=== PATIENT | female | born 1960 | race Caucasian/White ===

== ENCOUNTER 2017-09-04 15:14 | Observation (INO) | payer BC ==
[2017-09-04] MEDS ORDERED: SODIUM CHLORIDE 0.9% 1,000 ML IV STA (15:52)
[2017-09-04] MEDS ORDERED: NITROGLYCERIN SL TABS 0.4 MG TAB SUBLINGUAL STA (15:52)
[2017-09-04] MEDS ORDERED: ASPIRIN 81 MG PO STA (15:52)
[2017-09-04] MEDS ORDERED: IPRATROPIUM-ALBUTEROL 3 ML NEB INHALATION STA (15:53)
--- NOTE | 2017-09-04 15:56 | ED ---
Recheck HPI - General Chief Complaint: Recheck/Abnormal Lab/Rx Stated Complaint: Abn EKG Time Seen by Provider: 09/04/17 15:35 Source: patient, RN notes reviewed Mode of arrival: ambulatory Limitations: no limitations - History of Present Illness Initial Comments: This is a 57-year-old female with a benign past medical history is strong family history of heart disease stroke who is a smoker who presents from a doctor's office with complaints of midsternal chest pain dull pulsating in nature 9/10 severity midsternal nonradiating associated with shortness of breath. It started this morning about 5:30 AM and persists. She denies any other complaints cough fevers chills nausea vomiting sweats or other symptoms no other modifying factors. - Related Data Home Medications Medication Instructions Recorded Confirmed No Known Home Medications 05/04/14 09/04/17 Allergies Allergy/AdvReac Type Severity Reaction Status Date / Time No Known Allergies Allergy Verified 09/04/17 16:34 Review of Systems ROS Statement: Those systems with pertinent positive or pertinent negative responses have been documented in the HPI. ROS Other: All systems not noted in ROS Statement are negative. Past Medical History Past Medical History: No Reported History History of Any Multi-Drug Resistant Organisms: None Reported Past Surgical History: Tonsillectomy, Tubal Ligation Past Anesthesia/Blood Transfusion Reactions: No Reported Reaction Past Psychological History: No Psychological Hx Reported Smoking Status: Current every day smoker Past Alcohol Use History: Daily Past Drug Use History: None Reported General Exam - General Exam Comments Initial Comments: This is a well-developed well-nourished awake alert oriented 3 female Limitations: no limitations General appearance: alert, anxious Head exam: Present: atraumatic, normocephalic, normal inspection Eye exam: Present: normal appearance, PERRL, EOMI. Absent: scleral icterus, conjunctival injection, periorbital swelling ENT exam: Present: normal exam, mucous membranes moist Neck exam: Present: normal inspection. Absent: tenderness, meningismus, lymphadenopathy Respiratory exam: Present: decreased breath sounds. Absent: respiratory distress, wheezes, rales, rhonchi, stridor Cardiovascular Exam: Present: regular rate, normal rhythm, normal heart sounds. Absent: systolic murmur, diastolic murmur, rubs, gallop, clicks GI/Abdominal exam: Present: soft, normal bowel sounds. Absent: distended, tenderness, guarding, rebound, rigid Extremities exam: Present: normal inspection, full ROM, normal capillary refill. Absent: tenderness, pedal edema, joint swelling, calf tenderness Back exam: Present: normal inspection Neurological exam: Present: alert, oriented X3, CN II-XII intact Psychiatric exam: Present: normal affect, normal mood Skin exam: Present: warm, dry, intact, normal color. Absent: rash Course Vital Signs 09/04/17 09/04/17 09/04/17 15:30 16:10 16:45 Temperature 98.1 F Pulse Rate 91 78 76 Pulse Rate [ 72 [employer] Customer Experience [employer]ist ] Respiratory 18 18 16 Rate Blood Pressure 123/83 133/85 O2 Sat by Pulse 99 99 Oximetry 09/04/17 09/04/17 09/04/17 16:54 17:15 18:18 Temperature Pulse Rate 76 59 L 72 Pulse Rate [ [employer] Customer Experience Specialist ] Respiratory 16 18 16 Rate Blood Pressure 105/62 102/63 O2 Sat by Pulse 96 98 Oximetry 09/04/17 19:16 Temperature Pulse Rate 77 Pulse Rate [ [employer] Customer Experience Specialist ] Respiratory 16 Rate Blood Pressure 99/56 O2 Sat by Pulse 100 Oximetry - Reevaluation(s) Reevaluation #1: 09/04/17 15:55 I did discuss smoking cessation and the risks and benefits thereof with the patient the total conversation lasting 3.1 minutes. Medical Decision Making - Medical Decision Making I did reevaluate patient several occasions she still has chest pain though she has improved thus far the Toradol seemed to help though the chest pain is atypical she will be staying in tonight for a cardiac evaluation. - Lab Data Result diagrams: 09/04/17 16:10 09/04/17 16:10 Lab Results 09/04/17 09/04/17 09/04/17 Range/Units 16:10 16:10 16:10 WBC 9.7 (3.8-10.6) k/uL RBC 4.42 (3.80-5.40) m/uL Hgb 13.6 (11.4-16.0) gm/dL Hct 42.0 (34.0-46.0) % MCV 95.0 (80.0-100.0) fL MCH 30.8 (25.0-35.0) pg MCHC 32.4 (31.0-37.0) g/dL RDW 13.6 (11.5-15.5) % Plt Count 277 (150-450) k/uL Neutrophils % 80 % Lymphocytes % 9 % Monocytes % 8 % Eosinophils % 1 % Basophils % 0 % Neutrophils # 7.7 (1.3-7.7) k/uL Lymphocytes # 0.9 L (1.0-4.8) k/uL Monocytes # 0.8 (0-1.0) k/uL Eosinophils # 0.1 (0-0.7) k/uL Basophils # 0.0 (0-0.2) k/uL PT (9.0-12.0) sec INR (<1.2) APTT (22.0-30.0) sec D-Dimer (<0.60) mg/L FEU Sodium 140 (137-145) mmol/L Potassium 4.3 (3.5-5.1) mmol/L Chloride 105 (98-107) mmol/L Carbon Dioxide 26 (22-30) mmol/L Anion Gap 9 mmol/L BUN 15 (7-17) mg/dL Creatinine 0.58 (0.52-1.04) mg/dL Est GFR (CKD-EPI)AfAm >90 (>60 ml/min/1.73 sqM) Est GFR (CKD-EPI)NonAf >90 (>60 ml/min/1.73 sqM) Glucose 102 H (74-99) mg/dL Calcium 9.5 (8.4-10.2) mg/dL Magnesium 1.9 (1.6-2.3) mg/dL Total Bilirubin 0.7 (0.2-1.3) mg/dL AST 17 (14-36) U/L ALT 25 (9-52) U/L Alkaline Phosphatase 60 (38-126) U/L Total Creatine Kinase 44 (30-135) U/L CK-MB (CK-2) 0.8 (0.0-2.4) ng/mL CK-MB (CK-2) Rel Index 1.8 Troponin I <0.012 (0.000-0.034) ng/mL NT-Pro-B Natriuret Pep pg/mL Total Protein 6.6 (6.3-8.2) g/dL Albumin 4.0 (3.5-5.0) g/dL Amylase 55 (30-110) U/L Lipase 50 (23-300) U/L 09/04/17 09/04/17 Range/Units 16:10 16:10 WBC (3.8-10.6) k/uL RBC (3.80-5.40) m/uL Hgb (11.4-16.0) gm/dL Hct (34.0-46.0) % MCV (80.0-100.0) fL MCH (25.0-35.0) pg MCHC (31.0-37.0) g/dL RDW (11.5-15.5) % Plt Count (150-450) k/uL Neutrophils % % Lymphocytes % % Monocytes % % Eosinophils % % Basophils % % Neutrophils # (1.3-7.7) k/uL Lymphocytes # (1.0-4.8) k/uL Monocytes # (0-1.0) k/uL Eosinophils # (0-0.7) k/uL Basophils # (0-0.2) k/uL PT 10.0 (9.0-12.0) sec INR 1.0 (<1.2) APTT 24.0 (22.0-30.0) sec D-Dimer 0.36 (<0.60) mg/L FEU Sodium (137-145) mmol/L Potassium (3.5-5.1) mmol/L Chloride (98-107) mmol/L Carbon Dioxide (22-30) mmol/L Anion Gap mmol/L BUN (7-17) mg/dL Creatinine (0.52-1.04) mg/dL Est GFR (CKD-EPI)AfAm (>60 ml/min/1.73 sqM) Est GFR (CKD-EPI)NonAf (>60 ml/min/1.73 sqM) Glucose (74-99) mg/dL Calcium (8.4-10.2) mg/dL Magnesium (1.6-2.3) mg/dL Total Bilirubin (0.2-1.3) mg/dL AST (14-36) U/L ALT (9-52) U/L Alkaline Phosphatase (38-126) U/L Total Creatine Kinase (30-135) U/L CK-MB (CK-2) (0.0-2.4) ng/mL CK-MB (CK-2) Rel Index Troponin I (0.000-0.034) ng/mL NT-Pro-B Natriuret Pep 267 pg/mL Total Protein (6.3-8.2) g/dL Albumin (3.5-5.0) g/dL Amylase (30-110) U/L Lipase (23-300) U/L - EKG Data -: EKG Interpreted by Ri EKG shows normal: sinus rhythm (Sinus rhythm rate 73. Ago 122 QRS duration 72 QT since QTC of 404/445 PACs noted this. The office EKG which does show some evidence of poor R-wave progression.) - Radiology Data Radiology results: report reviewed (I did review the imaging and report no acute findings. Is evidence of calcifications and a cardiac vessels.), image reviewed Critical Care Time Critical Care Time: Yes Critical Care Time: 33 minutes of critical care time which includes initial history physical labs x- rays several reevaluation patient responsive therapy discuss with the admitting physician admission orders and documentation of the above Disposition Clinical Impression: Chest pain, Angina pectoris Disposition: ADMITTED IP TO THIS HOSP Condition: Stable Referrals: Christopher Gomez MD [Primary Care Provider] - 1-2 days
[2017-09-04 16:28] LABS: Basophils % (A) 0 %; Eosinophils # (A) 0.1 k/uL (0-0.7); Eosinophils % (A) 1 %; HGB 13.6 gm/dL (11.4-16.0); Lymphocytes # (A) 0.9 k/uL (1.0-4.8); Lymphocytes % (A) 9 %; MCH 30.8 pg (25.0-35.0); MCHC 32.4 g/dL (31.0-37.0); Mean Platelet Volume 7.7; Monocytes # (A) 0.8 k/uL (0-1.0); Monocytes % (A) 8 %; Neutrophils # (A) 7.7 k/uL (1.3-7.7); Neutrophils % (A) 80 %; Platelet Count 277 k/uL (150-450); RBC 4.42 m/uL (3.80-5.40); RDW 13.6 % (11.5-15.5); WBC 9.7 k/uL (3.8-10.6)
[2017-09-04] MEDS ORDERED: KETOROLAC 30 MG/ML 1 ML VIAL IVP STA (16:31)
--- NOTE | 2017-09-04 16:32 | XR ---
EXAMINATION TYPE: XR chest 2V DATE OF EXAM: 09/04/2017 COMPARISON: NONE HISTORY: Shortness of breath and chest pain TECHNIQUE: Frontal and lateral views of the chest are obtained. FINDINGS: There is pulmonary hyperinflation and biapical lucency suggestive of underlying COPD. There is no focal air space opacity, pleural effusion, or pneumothorax seen. The cardiac silhouette size is within normal limits. The osseous structures are intact. Mild multilevel degenerative changes of the thoracic spine are noted. IMPRESSION: No acute cardiopulmonary process. Radiographic sequela of COPD.
[2017-09-04 16:36] LABS: ALT 25 U/L (9-52); AST 17 U/L (14-36); Alkaline Phosphatase 60 U/L (38-126); Amylase 55 U/L (30-110); Anion Gap 9 mmol/L; Blood Urea Nitrogen 15 mg/dL (7-17); Calcium 9.5 mg/dL (8.4-10.2); Carbon Dioxide 26 mmol/L (22-30); Chloride 105 mmol/L (98-107); Glucose 102 mg/dL (74-99); Lipase 50 U/L (23-300); Magnesium 1.9 mg/dL (1.6-2.3); Potassium 4.3 mmol/L (3.5-5.1); Sodium 140 mmol/L (137-145); Total Bilirubin 0.7 mg/dL (0.2-1.3); Total Protein 6.6 g/dL (6.3-8.2)
[2017-09-04 16:48] LABS: Creatine Kinase 44 U/L (30-135)
[2017-09-04 16:58] LABS: D-Dimer 0.36 mg/L FEU (<0.60)
[2017-09-04 16:59] LABS: Creatine Kinase MB 0.8 ng/mL (0.0-2.4); Troponin I <0.012 ng/mL (0.000-0.034)
[2017-09-04] MEDS ORDERED: methylPREDNISolone SOD SUCCI 125 MG/2 ML VIAL IV STA (17:32)
--- NOTE | 2017-09-04 19:22 | CT ---
EXAMINATION TYPE: CT angio chest with contrast and with 3-D reconstruction renderings DATE OF EXAM: 09/04/2017 6:13 PM COMPARISON: None HISTORY: pain CT DLP: 131.6 mGycm Automated exposure control for dose reduction was used. CONTRAST: CTA scan of the thorax is performed with IV Contrast, patient injected with 100 mL of Isovue 370, pul monary embolism protocol. 3-D reconstructions. FINDINGS: LUNGS: The lungs show markedly advanced emphysematous changes bilaterally. They are grossly clear, th ere is no concerning parenchymal mass or nodule identified. There is no pleural effusion or pneumot horax seen. The tracheobronchial tree is patent. MEDIASTINUM: There is satisfactory enhancement of the pulmonary artery and its branches, there is no CT evidence for pulmonary embolism. There are no greater than 1 cm hilar or mediastinal lymph nodes. Cardiac size is top normal. Left coronary calcifications are noted. Pericardial examination is nega tive. OTHER: No additional significant abnormality is seen. IMPRESSION: 1. NEGATIVE FOR PULMONARY EMBOLISM. 2. CORONARY CALCIFICATIONS. 3. PROMINENT EMPHYSEMATOUS CHANGES NOTED.
[2017-09-04] MEDS ORDERED: NITROGLYCERIN SL TABS 0.4 MG TAB SUBLINGUAL PRN (20:36)
[2017-09-04] MEDS ORDERED: HEPARIN SODIUM,PORCINE 5,000 UNIT/ML 1 ML VIAL IV ONE (20:36)
[2017-09-04] MEDS ORDERED: NICOTINE 21MG/24HR PATCH TRANSDERM STA (20:40)
[2017-09-04] MEDS: HEPARIN SOD,PORK IN 0.45% NACL 25,000 UNIT in 0.45% NACL 1 500ML.BAG IV SCH (20:56)
[2017-09-04] MEDS: SODIUM CHLORIDE 0.9% 1,000 ML IV SCH (21:00)
[2017-09-04 23:01] LABS: Creatine Kinase 35 U/L (30-135)
[2017-09-04] MEDS ORDERED: HYDROcodone/APAP 5-325MG 1 EACH TAB PO PRN (23:10)
[2017-09-04] MEDS ORDERED: IPRATROPIUM-ALBUTEROL 3 ML NEB INHALATION PRN (23:11)
[2017-09-04] MEDS ORDERED: NALOXONE 0.4 MG/ML 1 ML VIAL IV PRN (23:11)
[2017-09-04 23:15] LABS: Creatine Kinase MB 0.5 ng/mL (0.0-2.4); Troponin I <0.012 ng/mL (0.000-0.034)
--- NOTE | 2017-09-04 23:20 | P.HPIM ---
History of Present Illness H&P Date: 09/04/17 Chief Complaint: chest pain 57-year-old female with no significant past medical history. Patient presented hospital due to severe chest pain. She reports that she woke up at 5:30 in the morning with midsternal chest pain radiating to the left side of chest and the back associated with some trouble breathing. Denies any nausea or vomiting denies any headaches or dizziness denies any constipation. Patient reports that the pain was 9 out of 10 in severity more follow-up dullness and heaviness on her chest she has never experienced anything similar to this. She denies any past medical history of coronary artery disease. She denies any history of trauma to the chest or any heavy physical exertion recently. She denies any recent travel or any history of active cancer. Patient took aspirin in the morning which she takes sporadically as he was recommended by her physician in the past. She went to her doctor's office recommended for her to [facility] for further evaluation. In the emergency department her cardiac enzymes were negative, CT angios the chest was negative for PE but did suggest consultations of the coronary arteries. Patient is admitted under observation for further cardiac workup Currently she feels comfortable and denying any ongoing chest Review of Systems Pertinent positives as noted in HPI. All other systems were reviewed and are negative Past Medical History Past Medical History: No Reported History History of Any Multi-Drug Resistant Organisms: None Reported Past Surgical History: Tonsillectomy, Tubal Ligation Past Anesthesia/Blood Transfusion Reactions: No Reported Reaction Smoking Status: Current every day smoker - Past Family History Mother Family Medical History: CVA/TIA Father Family Medical History: Pulmonary Embolus Brother(s) Family Medical History: Myocardial Infarction (ID) Additional Family Medical History / Comment(s): 2nd brother had valve replaced and a single bypass Daughter(s) Additional Family Medical History / Comment(s): over wieght/lap band surgery Son(s) Additional Family Medical History / Comment(s): diverticulitis Medications and Allergies Home Medications Medication Instructions Recorded Confirmed Type No Known Home Medications 05/04/14 09/04/17 History Allergies Allergy/AdvReac Type Severity Reaction Status Date / Time No Known Allergies Allergy Verified 09/04/17 22:17 Physical Exam Vitals: Vital Signs Temp Pulse Pulse Resp BP Pulse Ox 09/04/17 20:43 98.1 F 70 16 101/69 97 09/04/17 19:16 77 16 99/56 100 09/04/17 18:18 72 16 102/63 98 09/04/17 17:15 59 L 18 105/62 96 09/04/17 16:54 76 16 09/04/17 16:45 76 16 09/04/17 16:10 78 72 18 133/85 99 09/04/17 15:30 98.1 F 91 18 123/83 99 Intake and Output 09/04/17 09/04/17 09/04/17 06:59 14:59 22:59 Other: Weight 65.317 kg Constitutional: No acute distress, conversant, pleasant Eyes: Anicteric sclerae, moist conjunctiva, no lid-lag Pupils equal round reactive to light ENMT: NC/AT Oropharynx clear, no erythema, or exudates Neck: Supple, FROM, no masses, or JVD No carotid bruits No thyromegaly Lungs: Clear to auscultation Clear to percussion Normal respiratory effort, no accessory muscle use Cardiovascular: Heart regular in rate and rhythm, No murmurs, gallops, or rubs No peripheral edema Abdominal: Soft Nontender, no guarding, rebound or rigidity Abdomen moving with respiration Normoactive bowel sounds No hepatomegaly, No splenomegaly No palpable mass No abdominal wall hernia noted Skin: Normal temperature, tone, texture, turgor No induration No subcutaneous nodules No rash, lesions No ulcers Extremities: No digital cyanosis No clubbing Pedal pulses intact and symmetrical Radial pulses intact and symmetrical No calf tenderness Psychiatric: Alert and oriented to person, place and time Appropriate affect fair judgment Neuro Muscles Strength 5/5 in all 4 extremities Sensation to light touch grossly present throughout Cranial nerves II-XII grossly intact No focal sensory deficits Lymphatics: no palpable cervical or supraclavicular , or inguinal lymph nodes Results CBC & Chem 7: 09/04/17 16:10 09/04/17 16:10 Labs: Abnormal Lab Results - Last 24 Hours (Table) 09/04/17 09/04/17 Range/Units 16:10 16:10 Lymphocytes # 0.9 L (1.0-4.8) k/uL Glucose 102 H (74-99) mg/dL Assessment and Plan Assessment: 57-year-old female with known significant past medical history. Patient is a smoker presented to the hospital with chest pain, patient is admitted under observation with anticipated length of stay of less than 48 hours to rule out acute coronary syndrome. Cardiac enzymes will be monitored along with cardiac monitoring and cardiology consultative for further eval. Patient was started on heparin drip and nitro sublingual as needed Plan: Atypical chest pain rule out ACS Family history of stroke and coronary artery disease Patient active smoker Heparin drip per ACS protocol Nitro when necessary CT angiogram chest was negative for acute coronary syndrome which showed Conditions of the coronary arteries Cardiology consult Pain control Aspirin Check lipid profile Check TSH Tobacco smoking Patient counseled to quit smoking Nicotine replacement therapy offered DVT prophylaxis on heparin drip per ACS Surrogate decision-maker: Yoseph Mathew patient ex- CODE STATUS: Full code Discussed with: Patient, ER, RN Anticipated discharge: <[address]: Home A total of 55 minutes was spent on the care of this complex patient more than 50 % of the time was spent in counseling and care coordination.
[2017-09-05] MEDS: NITROGLYCERIN OINT 1 INCH/GM PACKET TOPICAL SCH ×4 (02:05→23:38)
[2017-09-05 04:32] LABS: Basophils % (A) 0 %; Eosinophils % (A) 0 %; HCT 42.6 % (34.0-46.0); HGB 13.4 gm/dL (11.4-16.0); Lymphocytes # (A) 0.5 k/uL (1.0-4.8); Lymphocytes % (A) 7 %; MCH 30.5 pg (25.0-35.0); MCHC 31.4 g/dL (31.0-37.0); MCV 97.3 fL (80.0-100.0); Mean Platelet Volume 7.5; Monocytes # (A) 0.1 k/uL (0-1.0); Monocytes % (A) 1 %; Neutrophils # (A) 5.6 k/uL (1.3-7.7); Neutrophils % (A) 90 %; Platelet Count 259 k/uL (150-450); RBC 4.38 m/uL (3.80-5.40); RDW 13.5 % (11.5-15.5); WBC 6.2 k/uL (3.8-10.6)
[2017-09-05 04:42] LABS: ALT 25 U/L (9-52); AST 14 U/L (14-36); Albumin 3.6 g/dL (3.5-5.0); Alkaline Phosphatase 54 U/L (38-126); Anion Gap 9 mmol/L; Blood Urea Nitrogen 15 mg/dL (7-17); Calcium 9.2 mg/dL (8.4-10.2); Carbon Dioxide 22 mmol/L (22-30); Chloride 106 mmol/L (98-107); Cholesterol 159 mg/dL (<200); Glucose 155 mg/dL (74-99); HDL Cholesterol 72 mg/dL (40-60); LDL Cholesterol,Calculated 80 mg/dL (0-99); Potassium 4.4 mmol/L (3.5-5.1); Sodium 137 mmol/L (137-145); Total Bilirubin 0.5 mg/dL (0.2-1.3); Triglycerides 37 mg/dL (<150)
[2017-09-05] MEDS: HEPARIN SODIUM,PORCINE 5,000 UNIT/ML 1 ML VIAL IV PRN ×2 (04:51→16:35)
[2017-09-05 05:02] LABS: Creatine Kinase 34 U/L (30-135)
[2017-09-05 05:15] LABS: Creatine Kinase MB 0.6 ng/mL (0.0-2.4); Troponin I <0.012 ng/mL (0.000-0.034)
[2017-09-05] MEDS ORDERED: ASPIRIN 325 MG TAB PO SCH (09:00)
[2017-09-05] MEDS ORDERED: ATORVASTATIN 80 MG TAB PO STA (09:12)
[2017-09-05] MEDS ORDERED: SODIUM CHLORIDE 0.9% 1,000 ML in EMPTY BAG 1 BAG IV ONE (09:12)
[2017-09-05] MEDS ORDERED: ALPRAZolam 0.25 MG TAB PO PRN (09:12)
[2017-09-05] MEDS ORDERED: ALPRAZolam 0.5 MG TAB PO PRN (09:12)
[2017-09-05] MEDS: SODIUM CHLORIDE 0.9% 1,000 ML IV SCH (09:28)
--- NOTE | 2017-09-05 12:11 | ECHOF ---
Referral Reason:cp MEASUREMENTS -------- HEIGHT: 167.6 cm WEIGHT: 65.3 kg BP: 99/63 RVIDd: 2.9 cm (< 3.3) IVSd: 0.9 cm (0.6 - 1.1) LVIDd: 4.2 cm (3.9 - 5.3) LVPWd: 1.0 cm (0.6 - 1.1) IVSs: 1.0 cm LVIDs: 2.9 cm LVPWs: 1.4 cm LA Diam: 2.7 cm (2.7 - 3.8) LAESV Index (A-L): 25.05 ml/m Ao Diam: 3.3 cm (2.0 - 3.7) AV Cusp: 2.0 cm (1.5 - 2.6) MV EXCURSION: 18.829 mm (> 18.000) MV EF SLOPE: 67 mm/s (70 - 150) EPSS: 1.1 cm MV E Nahid: 0.72 m/s MV DecT: 289 ms MV A Nahid: 0.57 m/s MV E/A Ratio: 1.26 AV maxP.52 mmHg AV meanP.93 mmHg AR PHT: 603 ms RAP: 5.00 mmHg RVSP: 22.68 mmHg FINDINGS -------- Sinus rhythm. This was a technically good study. The left ventricular size is normal. Left ventricular wall thickness is normal. Overall left vent ricular systolic function is normal with, an EF between 60 - 65 %. The right ventricle is normal in size. Normal LA size by volume 22+/-6 ml/m2. The right atrium is normal in size. The aortic valve is bicuspid. There is mild to moderate aortic valve sclerosis. There is mild aor tic regurgitation. There is mild aortic stenosis present. Peak/mean gradient across the Aortic Va lve is 25.52mmHg / 13.93mmHg. The mitral valve leaflets are mildly thickened. There is trace to mild mitral regurgitation. Mild tricuspid regurgitation present. Right ventricular systolic pressure is normal at < 35 mmHg. There is no pulmonic regurgitation present. The aortic root size is normal. Normal inferior vena cava with normal inspiratory collapse consistent with estimated right atrial pre ssure of 5 mmHg. The inferior vena cava is mildly dilated. There is no pericardial effusion. CONCLUSIONS -------- 1. Sinus rhythm. 2. This was a technically good study. 3. The left ventricular size is normal. 4. Left ventricular wall thickness is normal. 5. Overall left ventricular systolic function is normal with, an EF between 60 - 65 %. 6. The right ventricle is normal in size. 7. Normal LA size by volume 22+/-6 ml/m2. 8. The right atrium is normal in size. 9. The aortic valve is bicuspid. 10. There is mild to moderate aortic valve sclerosis. 11. There is mild aortic stenosis present. 12. Peak/mean gradient across the Aortic Valve is 25.52mmHg / 13.93mmHg. 13. The mitral valve leaflets are mildly thickened. 14. There is trace to mild mitral regurgitation. 15. Mild tricuspid regurgitation present. 16. Right ventricular systolic pressure is normal at < 35 mmHg. 17. There is no pulmonic regurgitation present. 18. The aortic root size is normal. 19. Normal inferior vena cava with normal inspiratory collapse consistent with estimated right atrial pressure of 5 mmHg. 20. The inferior vena cava is mildly dilated. 21. There is no pericardial effusion. [employer] APPLICATION DEV SPECIALIST: Yolanda Hobbs RDCS
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
[2017-09-05] MEDS ORDERED: ALBUTEROL NEBULIZED 2.5 MG/3 ML INHALATION PRN (12:52)
--- NOTE | 2017-09-05 12:52 | P.PN ---
Subjective Progress Note Date: 09/05/17 Principal diagnosis: Unstable angina Patient is doing well today. She denies any chest pain at the time when I saw her. No acute events overnight. Objective - Vital Signs Vital signs: Vital Signs Temp 98.5 F 09/05/17 12:00 Pulse 75 09/05/17 12:00 Resp 16 09/05/17 12:00 BP 99/63 09/05/17 12:00 Pulse Ox 94 L 09/05/17 12:00 Intake & Output 09/04/17 09/05/17 09/05/17 18:59 06:59 18:59 Intake Total 501.94 Balance 501.94 Weight 65.317 kg Intake: IV 380 Heparin Sod,Pork in 0.45% 60 NaCl 25,000 unit In 0.45 % NaCl 1 500ml.bag @ 12 UNITS/KG/HR 15.67 mls/hr IV .Q24H [facility] Rx#: [id number] Sodium Chloride 0.9% 1, 320 000 ml @ 80 mls/hr IV . [id number] [facility] Rx#:[id number] Intake, IV Titration 121.94 Amount Heparin Sod,Pork in 0.45% 121.94 NaCl 25,000 unit In 0.45 % NaCl 1 500ml.bag @ 12 UNITS/KG/HR 15.67 mls/hr IV .Q24H [facility] Rx#: [id number] Other: Voiding Method Toilet Toilet # Voids 2 - Exam General: The patient is awake and alert, in no distress Eye: there is normal conjunctiva bilaterally. Neck: The neck is supple, there is no JVD. Cardiovascular: Normal S1-S2, no S3-S4, no murmurs. Respiratory: Lungs clear to auscultation bilaterally Gastrointestinal: Abdomen is soft, nontender Musculoskeletal: There is no pedal edema. Neurological:. Speech is normal. Skin: Skin is warm and dry - Labs CBC & Chem 7: 09/05/17 04:14 09/05/17 04:14 Labs: Abnormal Lab Results - Last 24 Hours (Table) 09/04/17 09/04/17 09/05/17 Range/Units 16:10 16:10 04:14 Lymphocytes # 0.9 L (1.0-4.8) k/uL APTT (22.0-30.0) sec Creatinine 0.50 L (0.52-1.04) mg/dL Glucose 102 H 155 H (74-99) mg/dL Total Protein 6.0 L (6.3-8.2) g/dL HDL Cholesterol 72 H (40-60) mg/dL TSH 0.368 L (0.465-4.680) mIU/L 09/05/17 09/05/17 Range/Units 04:14 04:14 Lymphocytes # 0.5 L (1.0-4.8) k/uL APTT 32.9 H (22.0-30.0) sec Creatinine (0.52-1.04) mg/dL Glucose (74-99) mg/dL Total Protein (6.3-8.2) g/dL HDL Cholesterol (40-60) mg/dL TSH (0.465-4.680) mIU/L Assessment and Plan Assessment: 1. Unstable angina, 12-lead ECG showed no acute ischemic changes. Serial troponin negative [address] angiogram in the ED negative for PE. Patient was seen and evaluated by cardiology and plan for left heart catheterization on Friday. Currently on IV heparin per cardiology recommendations. Continue optimal medical management with aspirin, Lipitor, and metoprolol. Continue telemetry monitoring. Echocardiogram showed preserved ejection fraction with no significant valvular or wall motion abnormalities. Coronary calcifications noted on computed tomography scan. History of premature coronary artery disease in the family. Multiple risk factors. 2. Underlying emphysema, with no evidence of exacerbation at this time. Bronchodilators as needed. 3. Tobacco abuse, patient counseled extensively to quit. She verbalized understanding.
[2017-09-05 13:46] LABS: Hemoglobin A1C 5.6 % (4.0-6.0)
[2017-09-05] MEDS: METOPROLOL TARTRATE 12.5 MG TAB PO SCH (20:31)
[2017-09-05] MEDS: HEPARIN SOD,PORK IN 0.45% NACL 25,000 UNIT in 0.45% NACL 1 500ML.BAG IV SCH (23:21)
[2017-09-06] MEDS: NITROGLYCERIN OINT 1 INCH/GM PACKET TOPICAL SCH ×4 (01:58→21:53)
[2017-09-06 07:45] LABS: Basophils % (A) 0 %; Eosinophils # (A) 0.1 k/uL (0-0.7); Eosinophils % (A) 1 %; HCT 42.1 % (34.0-46.0); HGB 13.6 gm/dL (11.4-16.0); Lymphocytes # (A) 2.5 k/uL (1.0-4.8); Lymphocytes % (A) 37 %; MCH 31.2 pg (25.0-35.0); MCHC 32.3 g/dL (31.0-37.0); MCV 96.6 fL (80.0-100.0); Mean Platelet Volume 8.5; Monocytes # (A) 0.4 k/uL (0-1.0); Monocytes % (A) 6 %; Neutrophils # (A) 3.6 k/uL (1.3-7.7); Neutrophils % (A) 54 %; Platelet Count 234 k/uL (150-450); RBC 4.36 m/uL (3.80-5.40); RDW 13.5 % (11.5-15.5); WBC 6.8 k/uL (3.8-10.6)
[2017-09-06 08:01] LABS: Anion Gap 7 mmol/L; Blood Urea Nitrogen 15 mg/dL (7-17); Calcium 8.9 mg/dL (8.4-10.2); Carbon Dioxide 20 mmol/L (22-30); Chloride 113 mmol/L (98-107); Glucose 80 mg/dL (74-99); Potassium 4.2 mmol/L (3.5-5.1); Sodium 140 mmol/L (137-145)
[2017-09-06] MEDS: ASPIRIN 81 MG PO SCH ×2 (10:38→12:34)
[2017-09-06] MEDS: ATORVASTATIN 20 MG TAB PO SCH ×2 (10:38→12:34)
[2017-09-06] MEDS: METOPROLOL TARTRATE 12.5 MG TAB PO SCH ×2 (10:39→19:46)
[2017-09-06] MEDS: HEPARIN SOD,PORK IN 0.45% NACL 25,000 UNIT in 0.45% NACL 1 500ML.BAG IV SCH (10:39)
[2017-09-06] MEDS ORDERED: NITROGLYCERIN SL TABS 0.4 MG TAB SUBLINGUAL PRN (11:03)
[2017-09-06] MEDS ORDERED: ATORVASTATIN 20 MG TAB PO STA (11:03)
[2017-09-06] MEDS ORDERED: ASPIRIN 325 MG TAB PO STA (11:03)
--- NOTE | 2017-09-06 12:03 | P.PN ---
Subjective Progress Note Date: 09/06/17 Principal diagnosis: Unstable angina No acute events overnight. Patient denies any chest pain today. Objective - Vital Signs Vital signs: Vital Signs Temp 97.3 F L 09/06/17 11:33 Pulse 57 L 09/06/17 11:33 Resp 18 09/06/17 11:33 BP 122/75 09/06/17 11:33 Pulse Ox 97 09/06/17 11:33 Intake & Output 09/05/17 09/06/17 09/06/17 18:59 06:59 18:59 Intake Total 3289.243 148.817 264.759 Balance 3289.243 148.817 264.759 Intake: Intake, IV Titration 1429.243 148.817 264.759 Amount Heparin Sod,Pork in 0.45% 229.243 148.817 264.759 NaCl 25,000 unit In 0.45 % NaCl 1 500ml.bag @ 12 UNITS/KG/HR 15.67 mls/hr IV .Q24H [facility] Rx#: [id number] Sodium Chloride 0.9% 1, 240 000 ml @ 80 mls/hr IV . [id number] [facility] Rx#:[id number] Sodium Chloride 0.9% 1, 960 000 ml In Empty Bag 1 bag @ 1 ML/KG/HR 65.31 mls/ hr IV .[id number] [facility] Rx#: [id number] Oral 1860 Other: Voiding Method Toilet Toilet Toilet # Voids 3 1 - Exam General: The patient is awake and alert, in no distress Eye: there is normal conjunctiva bilaterally. Neck: The neck is supple, there is no JVD. Cardiovascular: Normal S1-S2, no S3-S4, no murmurs. Respiratory: Lungs clear to auscultation bilaterally Gastrointestinal: Abdomen is soft, nontender Musculoskeletal: There is no pedal edema. Neurological:. Speech is normal. Skin: Skin is warm and dry - Labs CBC & Chem 7: 09/06/17 07:25 09/06/17 07:25 Labs: Abnormal Lab Results - Last 24 Hours (Table) 09/05/17 09/05/17 09/06/17 Range/Units 22:07 23:14 07:25 APTT 31.3 H 59.8 H (22.0-30.0) sec Chloride 113 H (98-107) mmol/L Carbon Dioxide 20 L (22-30) mmol/L Creatinine 0.50 L (0.52-1.04) mg/dL Assessment and Plan Assessment: 1. Unstable angina, 12-lead ECG showed no acute ischemic changes. Serial troponin negative [address] angiogram in the ED negative for PE. Patient was seen and evaluated by cardiology and plan for left heart catheterization on Friday. Currently on IV heparin per cardiology recommendations. Continue optimal medical management with aspirin, Lipitor, and metoprolol. Continue telemetry monitoring. Echocardiogram showed preserved ejection fraction with no significant valvular or wall motion abnormalities. Coronary calcifications noted on computed tomography scan. History of premature coronary artery disease in the family. Multiple risk factors. 2. Underlying emphysema, with no evidence of exacerbation at this time. Bronchodilators as needed. 3. Tobacco abuse, patient counseled extensively to quit. She verbalized understanding.
--- NOTE | 2017-09-06 14:14 | P.PN ---
Subjective Progress Note Date: 09/06/17 Mrs. Mathew is a pleasant 57-year-old female past medical history significant for chronic nicotine dependence and daily alcohol intake. She denies history of coronary artery disease and is never seen a bag bundler for any reason. We've been asked to see her in consultation for symptoms of chest pain. She states she woke up yesterday out of sleep with a heavy pressure sensation in the left precordial region. The pain started under the left breast and radiated around to the mid-sternal region. She felt mildly short of breath with this pain. She denies radiation to the arm, back or neck. She denies associated dizziness, palpitations, nausea, vomiting or diaphoresis. She presented to see her primary care physician and was sent here for further evaluation. Upon arrival CT angio was performed which was negative for pulmonary embolism but revealed evidence of coronary calcifications with prominent emphysematous changes noted. CAT scan was reviewed with radiologist Dr. Salmeron and he really looked at the exam and noted that her aortic root was 3.4 cm and was unable to visualize the entire aorta. EKG reveals sinus mechanism with no acute ST or T wave abnormalities noted with PACs. Chest x-ray is negative for an acute cardiopulmonary process with evidence of COPD. Laboratory data reviewed, hemoglobin 13.4, platelets 259, d-dimer 0.36, sodium 137, potassium 4.4, creatinine 0.5, magnesium 1.9, cardiac enzymes negative 3, LDL 80, HDL 72, TSH 0.368 with a free T4 of 1.2, proBNP 267. She takes no daily medications. She is scheduled to undergo cardiac catheterization with Dr. Whittington on Friday. She has been chest pain-free through the night and this morning. She did however have a 46 beat run of ventricular tachycardia for which she described a thumping feeling in her chest. Started on metoprolol 12.5 mg by mouth twice a day at that time. Her vital signs and labs are stable. Objective - Vital Signs Vital signs: Vital Signs Temp 97.3 F L 09/06/17 11:33 Pulse 57 L 09/06/17 11:33 Resp 18 09/06/17 11:33 BP 122/75 09/06/17 11:33 Pulse Ox 97 09/06/17 11:33 Intake & Output 09/05/17 09/06/17 09/06/17 18:59 06:59 18:59 Intake Total 3289.243 148.817 264.759 Balance 3289.243 148.817 264.759 Intake: Intake, IV Titration 1429.243 148.817 264.759 Amount Heparin Sod,Pork in 0.45% 229.243 148.817 264.759 NaCl 25,000 unit In 0.45 % NaCl 1 500ml.bag @ 12 UNITS/KG/HR 15.67 mls/hr IV .Q24H [facility] Rx#: [id number] Sodium Chloride 0.9% 1, 240 000 ml @ 80 mls/hr IV . [id number] [facility] Rx#:[id number] Sodium Chloride 0.9% 1, 960 000 ml In Empty Bag 1 bag @ 1 ML/KG/HR 65.31 mls/ hr IV .[id number] [facility] Rx#: [id number] Oral 1860 Other: Voiding Method Toilet Toilet Toilet # Voids 3 1 - Exam PHYSICAL EXAMINATION: HEENT: Head is atraumatic, normocephalic. Pupils equal, round. Neck is supple. There is no elevated jugular venous pressure. HEART EXAMINATION: Heart sounds regular, S1 and S2 with a systolic murmur at the base. CHEST EXAMINATION: Lungs reveal diminished air entry throughout. No chest wall tenderness is noted on palpation or with deep breathing. ABDOMEN: Soft, nontender. Bowel sounds are heard. No organomegaly noted. EXTREMITIES: 2+ peripheral pulses with no evidence of peripheral edema and no calf tenderness noted. NEUROLOGIC patient is awake, alert and oriented x3. . - Labs CBC & Chem 7: 09/06/17 07:25 09/06/17 07:25 Labs: Abnormal Lab Results - Last 24 Hours (Table) 09/05/17 09/05/17 09/06/17 Range/Units 22:07 23:14 07:25 APTT 31.3 H 59.8 H (22.0-30.0) sec Chloride 113 H (98-107) mmol/L Carbon Dioxide 20 L (22-30) mmol/L Creatinine 0.50 L (0.52-1.04) mg/dL Assessment and Plan Assessment: #1 Unstable angina, acute coronary event has been ruled out. CT angiogram performed on admission reveals evidence of coronary calcifications and patient has significant family history with brother, mother and father all having premature coronary artery disease. #2 Chronic nicotine dependence #3 Daily alcohol intake #4 ventricular tachycardia Plan: From cardiology perspective, medications were reviewed and we will continue the same. We will watch closely for further ventricular arrhtyhmias. She will undergo cardiac catheterization on Friday. Further recommendations to follow. TRANSIT MAN note has been reviewed, I agree with a documented findings and plan of care. Patient was seen and examined.
[2017-09-07] MEDS: HEPARIN SOD,PORK IN 0.45% NACL 25,000 UNIT in 0.45% NACL 1 500ML.BAG IV SCH ×2 (04:47→23:38)
[2017-09-07 07:45] LABS: Anion Gap 4 mmol/L; Blood Urea Nitrogen 9 mg/dL (7-17); Carbon Dioxide 28 mmol/L (22-30); Chloride 110 mmol/L (98-107); Glucose 91 mg/dL (74-99); Potassium 4.4 mmol/L (3.5-5.1); Sodium 142 mmol/L (137-145)
[2017-09-07 07:46] LABS: Basophils % (A) 0 %; Eosinophils # (A) 0.1 k/uL (0-0.7); Eosinophils % (A) 2 %; HCT 39.6 % (34.0-46.0); HGB 12.6 gm/dL (11.4-16.0); Lymphocytes # (A) 2.6 k/uL (1.0-4.8); Lymphocytes % (A) 46 %; MCH 30.9 pg (25.0-35.0); MCHC 31.7 g/dL (31.0-37.0); MCV 97.6 fL (80.0-100.0); Mean Platelet Volume 7.9; Monocytes # (A) 0.4 k/uL (0-1.0); Monocytes % (A) 6 %; Neutrophils # (A) 2.4 k/uL (1.3-7.7); Neutrophils % (A) 44 %; Platelet Count 244 k/uL (150-450); RBC 4.06 m/uL (3.80-5.40); RDW 13.6 % (11.5-15.5); WBC 5.6 k/uL (3.8-10.6)
[2017-09-07] MEDS: ATORVASTATIN 20 MG TAB PO SCH (08:24)
[2017-09-07] MEDS: METOPROLOL TARTRATE 12.5 MG TAB PO SCH ×2 (08:24→19:35)
[2017-09-07] MEDS: ASPIRIN 81 MG PO SCH (08:25)
[2017-09-07] MEDS: NITROGLYCERIN OINT 1 INCH/GM PACKET TOPICAL SCH ×3 (12:22→23:09)
--- NOTE | 2017-09-07 14:10 | P.PN ---
Subjective Mrs. Mathew is seen and examined ambulating around the room. She denies symptoms of chest pain, shortness of breath, dizziness, palpitations, nausea, vomiting or diaphoresis. She had an episode of nonsustained ventricular tachycardia, 46 beats on Friday evening. She was started on metoprolol that time. She has had no further episodes on telemetry. Blood pressure 124/81 heart rate 60. She is tolerating the Toprol without symptoms. Heparin infusion is ongoing. She will remain nothing by mouth after midnight tonight for cardiac catheterization per Dr. Whittington tomorrow morning. Objective - Vital Signs Vital signs: Vital Signs Temp 97.8 F 09/07/17 07:15 Pulse 60 09/07/17 07:15 Resp 18 09/07/17 07:15 BP 124/81 09/07/17 07:15 Pulse Ox 96 09/07/17 07:15 Intake & Output 09/06/17 09/07/17 09/07/17 18:59 06:59 18:59 Intake Total 1484.558 316.82 455.48 Balance 1484.558 316.82 455.48 Intake: Intake, IV Titration 404.558 316.82 95.48 Amount Heparin Sod,Pork in 0.45% 404.558 316.82 95.48 NaCl 25,000 unit In 0.45 % NaCl 1 500ml.bag @ 12 UNITS/KG/HR 15.67 mls/hr IV .Q24H [facility] Rx#: [id number] Oral 880 360 Other 200 Other: Voiding Method Toilet Toilet Toilet # Voids 1 - Exam GENERAL: Well-appearing, well-nourished and in no acute distress. NECK: Supple without JVD or thyromegaly. LUNGS: Breath sounds clear to auscultation bilaterally. Respiration equal and unlabored. No wheezes, rales or rhonchi. HEART: Regular rate and rhythm with murmur at the base, no rubs or gallops. S1 and S2 heard. EXTREMITIES: Normal range of motion, no edema. No clubbing or cyanosis. Peripheral pulses intact. - Labs CBC & Chem 7: 09/07/17 06:55 09/07/17 06:55 Labs: Abnormal Lab Results - Last 24 Hours (Table) 09/06/17 09/06/17 09/07/17 Range/Units 14:09 22:43 06:55 APTT 42.8 H 58.7 H (22.0-30.0) sec Chloride 110 H (98-107) mmol/L 09/07/17 Range/Units 06:55 APTT 77.8 H (22.0-30.0) sec Chloride (98-107) mmol/L Assessment and Plan Assessment: ASSESSMENT Unstable angina, acute coronary event has been ruled out. CT angiogram performed on admission reveals evidence of coronary calcifications and patient has significant family history with brother, mother and father all having premature coronary artery disease. Non-sustained ventricular tachycardia, 46 beats Chronic nicotine dependence Daily alcohol intake PLAN Continue with lopressor as was ordered for non-sustained VT. NPO after midnight for catheterization in the morning. Further recommendations to follow based upon clinical course. The above impression and plan of care have been discussed and directed by the signing physician. Heidi Hoffman, nurse practitioner, acting as scribe for signing physician.
[2017-09-07] MEDS: NICOTINE 21MG/24HR PATCH TRANSDERM SCH (15:17)
--- NOTE | 2017-09-07 15:27 | PN ---
PROGRESS NOTE DATE OF SERVICE: 09/07/17. PRESENTING COMPLAINT: Chest pain. HISTORY OF PRESENTING COMPLAINT: Patient admitted with diagnosis of unstable angina. The patient has had no further chest pain. Breathing is stable. Patient did have a run of ventricular tachycardia for which patient is on a beta dominique. The patient has been resting in bed. Did tolerate some diet. Pending a cardiac catheterization by Dr. Millie Whittington on Friday. The patient has been a longstanding smoker. REVIEW OF SYSTEMS: Done for constitutional, cardiovascular, GI, pulmonary; relevant findings as above. CURRENT MEDICATIONS: Reviewed that include Ventolin, DuoNeb p.r.n., aspirin, Lipitor, IV heparin, Lopressor and nitro paste. PHYSICAL EXAMINATION: Temperature 97.6, pulse 56, respiratory 18, blood pressure 120/82, pulse ox 97% room air. GENERAL APPEARANCE: Sitting on bed, sitting up, slightly anxious. EYES: Pupils equally, conjunctivae normal. HEENT: External appearance of nose and ears normal. Oral cavity normal. NECK: JVD not raised. Mass not palpable. RESPIRATORY: Effort normal. Lungs, diminished breath sounds. CARDIOVASCULAR: First and second sounds, no edema. ABDOMEN: Soft, nontender. Liver and spleen not palpable. LYMPHATIC: No lymphadenopathy in the neck, axillae, groin. PSYCHIATRY: Alert and oriented x3. Mood and affect normal. INVESTIGATIONS: PTT is noted. LDL is 80. TSH 0.368. ASSESSMENT: 1. Unstable angina in a patient with known coronary risk factors. 2. Emphysema in a current smoker. 3. Chronic nicotine dependence. 4. Patient is a cigarette smoker. 5. IV heparin monitoring. 6. Run of sustained ventricular tachycardia on beta dominique. 7. Abnormal TSH with normal free T4. PLAN: Continue with IV heparin. We will recheck patient's free T4 and TSH in the morning. The patient is awaiting a cardiac catheterization. Nicotine patch has been added. Smoking cessation counseling was done with the patient including the effects on the lung and the heart. The patient will be given a nicotine patch. More than 3 minutes was spent on this aspect of the case. MMCATRINAL / DORINDAN: [id number] /
[2017-09-07] MEDS ORDERED: SODIUM CHLORIDE 0.9% 1,000 ML in EMPTY BAG 1 BAG IV ONE (22:00)
[2017-09-08] MEDS: NITROGLYCERIN OINT 1 INCH/GM PACKET TOPICAL SCH (04:51)
[2017-09-08] MEDS ORDERED: ASPIRIN 81 MG PO ONE (06:00)
[2017-09-08] MEDS ORDERED: ATORVASTATIN 80 MG TAB PO ONE (06:00)
[2017-09-08] MEDS ORDERED: ALPRAZolam 0.25 MG TAB PO PRN (06:00)
[2017-09-08] MEDS ORDERED: ASPIRIN 325 MG TAB PO ONE (06:00)
[2017-09-08] MEDS ORDERED: ALPRAZolam 0.5 MG TAB PO PRN (06:00)
[2017-09-08] MEDS: METOPROLOL TARTRATE 12.5 MG TAB PO SCH (06:13)
[2017-09-08 07:37] LABS: Basophils % (A) 0 %; Eosinophils # (A) 0.1 k/uL (0-0.7); Eosinophils % (A) 2 %; HCT 40.1 % (34.0-46.0); HGB 12.4 gm/dL (11.4-16.0); Lymphocytes # (A) 2.2 k/uL (1.0-4.8); Lymphocytes % (A) 34 %; MCH 29.8 pg (25.0-35.0); MCV 96.3 fL (80.0-100.0); Mean Platelet Volume 8.4; Monocytes # (A) 0.4 k/uL (0-1.0); Monocytes % (A) 7 %; Neutrophils # (A) 3.6 k/uL (1.3-7.7); Neutrophils % (A) 54 %; Platelet Count 256 k/uL (150-450); RBC 4.16 m/uL (3.80-5.40); RDW 13.4 % (11.5-15.5); WBC 6.5 k/uL (3.8-10.6)
[2017-09-08 08:06] LABS: Anion Gap 4 mmol/L; Blood Urea Nitrogen 6 mg/dL (7-17); Calcium 9.2 mg/dL (8.4-10.2); Carbon Dioxide 30 mmol/L (22-30); Chloride 108 mmol/L (98-107); Glucose 88 mg/dL (74-99); Potassium 4.7 mmol/L (3.5-5.1); Sodium 142 mmol/L (137-145)
[2017-09-08] MEDS ORDERED: MIDAZOLAM 2 MG/2 ML VIAL ONE (09:10)
[2017-09-08] MEDS ORDERED: LIDOCAINE 1% INJ 10MG/ML (20 ML MDV) ONE (09:10)
[2017-09-08] MEDS ORDERED: MIDAZOLAM 2 MG/2 ML VIAL IVP ONE (09:16)
[2017-09-08] MEDS ORDERED: LIDOCAINE 1% INJ 10MG/ML (20 ML MDV) SQ ONE (09:16)
[2017-09-08] MEDS ORDERED: fentaNYL (PF) 50 MCG/ML 2 ML AMP ONE (09:18)
[2017-09-08] MEDS ORDERED: fentaNYL (PF) 50 MCG/ML 2 ML AMP IVP ONE (09:22)
[2017-09-08] MEDS ORDERED: IV FLUID CONTINUATION 1,000 ML IV ONE (09:23)
[2017-09-08] MEDS ORDERED: IOPAMIDOL-370 125ML BTL INJ ONE (09:33)
[2017-09-08] MEDS ORDERED: RX INFO: IV CONTRAST WAS GIVEN 1 EACH MISC MISCELLANE PRN (09:43)
--- NOTE | 2017-09-08 10:52 | CC ---
CARDIAC CATHETERIZATION REPORT INDICATION: Unstable angina. PROCEDURE NOTE: After obtaining informed consent, left heart catheterization, coronary angiogram and aortogram was performed via the right femoral artery using standard Sally catheters. Patient tolerated the procedure well without any obvious immediate complications. Femoral angiogram was performed and Angio-Seal was deployed for hemostasis. Patient received moderate conscious sedation and total sedation time was 20 minutes. FINDINGS: 1. HEMODYNAMICS: Left ventricular end-diastolic pressure is 12-14 mm. There is no significant gradient across the aortic valve. 2. LEFT VENTRICULOGRAM: The left ventriculogram is not performed. 3. AORTOGRAM: Aortogram shows a mildly dilated ascending aorta with the 2+ aortic regurgitation. 4. ANGIOGRAPHIC DATA: 5. LEFT MAIN CORONARY ARTERY: Left main coronary artery is a normal-sized vessel and is free of stenosis. It divides into left anterior descending coronary artery and circumflex coronary artery. LAD and its branches are free of significant stenosis. Circumflex coronary artery shows an atherosclerotic plaque in its proximal part with a 30% stenosis. Right coronary artery is a large dominant vessel and is free of significant stenosis. CONCLUSION: Mild nonobstructive coronary artery disease. PLAN: The exact etiology for patient's chest discomfort is unclear. She does not have significant obstructive CAD and her management is going to be in the form of risk factor modification and optimal medical therapy. She had a run of ventricular tachycardia. She is currently on beta blockers. Heart rate is in the in the high 40s. She is able to tolerate only 12.5 mg of metoprolol b.i.d. Her magnesium and potassium were normal when this happened when she was symptomatic. I am going to ask Dr. Kerr to evaluate the patient prior to discharge. MMODL / IJN: [id number] /
[2017-09-08] MEDS: NICOTINE 21MG/24HR PATCH TRANSDERM SCH (12:08)
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
--- NOTE | 2017-09-08 14:28 | CONS ---
CONSULTATION Arelis Mathew is a 57-year-old female who presented with chest discomfort. She was evaluated in the emergency room and then admitted. She underwent a chest CT which did not show any evidence of pulmonary embolism. She had chest discomfort under her left breast that radiated to the midsternal region. No syncope. The initial 12-lead ECG shows sinus rhythm and sinus bradycardia with normal NV and narrow QRS, normal ST segments, normal QT interval. No epsilon waves. No delta waves. She is not on any medications. SOCIAL HISTORY: She drinks 2 beers a day and she smokes regularly. REVIEW OF SYSTEMS: No fever, chills, or rigors. No cough or expectoration. No nausea, vomiting, or diarrhea. No hematuria or dysuria. No strokes or seizures or skin lesions. No musculoskeletal complaints. Cardiac complaints on admission were chest pain. Later, while on telemetry, she felt palpitations and she had a run of sustained ventricular tachycardia for greater than 45 beats at greater than 160 beats per minute. This was a right bundle branch block like morphology with a superior axis with evidence of a fusion beat and AV dissociation. PAST HISTORY: Of tonsillectomy, tubal ligation. SOCIAL HISTORY: Current everyday smoker as well as daily alcohol use. FAMILY HISTORY: Noncontributory. She has a family history of pulmonary embolism. ALLERGIES: No known drug allergies. MEDICATIONS: None. EXAMINATION: Blood pressure is 133/85 mmHg. Heart rate is in the 50s and 60s. Head and neck examination normal. Heart sounds are normal. Lungs are clear to auscultation. Extremities are warm, no edema. She underwent coronary angiogram in response to ventricular tachycardia. She does not have any significant coronary artery disease. Two-dimensional echo shows a bicuspid aortic valve. Mild aortic stenosis. Preserved LV systolic function. LABS: Labs are reviewed. Her TSH is 0.368, free T4 is 1.2. Free T3 is 3.4. TSH is minimally suppressed. IMPRESSION: 1. Sustained ventricular tachycardia greater than 160 beats per minute with spontaneous resolution. 2. Normal coronary arteries. 3. History of 2 beers a day. Regular alcohol use and current smoker. 4. Bicuspid aortic valve. SUGGEST: 1. Start verapamil 40 mg twice daily. 2. Stop metoprolol. 3. Recheck TSH and exercise stress test within the next 3 to 4 days on verapamil. 4. Assessment for cardiac sarcoidosis and assessment for a delayed enhancement of the left ventricle. Assessment of right ventricular size and function and if this is normal, then we will proceed with a diagnostic EP study. In the interim to in the conform that at this is truly a structurally normal heart, in view of her sustained spontaneous ventricular tachycardia, I would recommend a Life Vest. This was discussed with the patient. I explained to her that ultimately I would proceed with an EP study after some further investigations. She has agreed with the plan. She will follow up with Dr. Whittington as an outpatient. MMODL / IJN: [id number] /
--- NOTE | 2017-09-08 17:43 | PN ---
PROGRESS NOTE DATE OF SERVICE: 09/08/17 PRESENT COMPLAINT: Chest pain. INTERVAL HISTORY: This patient admitted with chest pain, did undergo a cardiac catheterization by Dr. Whittington this morning. The patient is found to have nonobstructive disease with about 30% lesions. The patient did have 160-beat run of ventricular tachycardia for which Dr. Kerr was consulted. The patient is lying in bed. No new symptoms. REVIEW OF SYSTEMS: Done for constitutional, cardiovascular, GI, pulmonary; relevant findings as above. CURRENT MEDICATIONS: Reviewed that include aspirin, Lipitor, nicotine patch. Verapamil was started today. PHYSICAL EXAMINATION: Temperature 98.1, pulse 55, respirations 16, blood pressure 123/73, pulse ox 98% on room air. GENERAL APPEARANCE: Lying in bed, comfortable, awake. EYES: Pupils equal. Conjunctivae normal. HEENT: External appearance of nose and ears normal. Oral cavity normal. NECK: JVD not raised. Mass not palpable. RESPIRATORY: Effort normal. Lungs, decreased breath sounds. CARDIOVASCULAR: 1st and 2nd sounds normal. No edema. ABDOMEN: Soft, nontender. Liver and spleen not palpable. PSYCHIATRY: Alert and oriented x3. Mood and affect normal. INVESTIGATIONS: White count 6.5, hemoglobin 12.4, potassium 4.7. TSH normal. ASSESSMENT: 1. Nonobstructive coronary artery disease with 30% lesion per cardiac catheterization. 2. Sustained ventricular tachycardia self-limiting. 3. Emphysema in a current smoker. 4. Chronic nicotine dependence, patient is active cigarette smoker. 5. IV heparin monitoring now discontinued. 6. Repeat TSH is normal. PLAN: The patient was seen by Dr. Kerr later in the day. The patient has been put on verapamil. He has ordered the Life Vest. Follow. MMODL / IJN: [id number] /
[2017-09-08] MEDS: VERAPAMIL 40 MG TAB PO SCH (20:39)
[2017-09-09 07:29] VITALS: RESP 18
[2017-09-09 07:44] LABS: Basophils % (A) 0 %; Eosinophils # (A) 0.1 k/uL (0-0.7); Eosinophils % (A) 2 %; HCT 38.3 % (34.0-46.0); Lymphocytes # (A) 1.8 k/uL (1.0-4.8); Lymphocytes % (A) 33 %; MCH 29.8 pg (25.0-35.0); MCHC 31.3 g/dL (31.0-37.0); MCV 95.2 fL (80.0-100.0); Mean Platelet Volume 8.3; Monocytes # (A) 0.4 k/uL (0-1.0); Monocytes % (A) 7 %; Neutrophils # (A) 2.9 k/uL (1.3-7.7); Neutrophils % (A) 54 %; Platelet Count 274 k/uL (150-450); RBC 4.03 m/uL (3.80-5.40); RDW 13.3 % (11.5-15.5); WBC 5.4 k/uL (3.8-10.6)
[2017-09-09 08:02] LABS: Anion Gap 4 mmol/L; Blood Urea Nitrogen 9 mg/dL (7-17); Carbon Dioxide 28 mmol/L (22-30); Chloride 109 mmol/L (98-107); Glucose 88 mg/dL (74-99); Potassium 4.3 mmol/L (3.5-5.1); Sodium 141 mmol/L (137-145)
[2017-09-09] MEDS: ATORVASTATIN 20 MG TAB PO SCH (08:50)
[2017-09-09] MEDS: ASPIRIN 81 MG PO SCH (08:50)
[2017-09-09] MEDS: NICOTINE 21MG/24HR PATCH TRANSDERM SCH (08:50)
[2017-09-09] MEDS: VERAPAMIL 40 MG TAB PO SCH (08:50)
[2017-09-09 12:25] VITALS: BP 107/72; PULSE 66; TEMP 97.6
--- NOTE | 2017-09-09 14:49 | P.PN ---
Subjective Pt is seen and examined sitting up in bed in no acute distress. LifeVest was delivered last night with instructions for use. She denies any symptoms of chest pain, shortness of breath, palpitations, dizziness or diaphoresis. Telemetry tracings have been unremarkable, no further VT. She is tolerating verapamil, blood pressure 107/72 heart rate 66. Laboratory data reviewed, hemoglobin 12, platelets 274, sodium 141, potassium 4.3, creatinine 0.62. Objective - Vital Signs Vital signs: Vital Signs Temp 97.6 F 09/09/17 12:00 Pulse 66 09/09/17 12:00 Resp 18 09/09/17 12:00 BP 107/72 09/09/17 12:00 Pulse Ox 99 09/09/17 12:00 Intake & Output 09/08/17 09/09/17 09/09/17 18:59 06:59 18:59 Intake Total 600 360 Balance 600 360 Intake: IV 200 Oral 400 360 Other: Voiding Method Toilet Toilet Toilet # Voids 1 2 1 - Exam GENERAL: Well-appearing, well-nourished and in no acute distress. NECK: Supple without JVD or thyromegaly. LUNGS: Breath sounds clear to auscultation bilaterally. Respiration equal and unlabored. No wheezes, rales or rhonchi. HEART: Regular rate and rhythm with murmur at the base, no rubs or gallops. S1 and S2 heard. EXTREMITIES: Normal range of motion, no edema, no hematoma, no bleeding. No clubbing or cyanosis. Peripheral pulses intact. - Labs CBC & Chem 7: 09/09/17 06:39 09/09/17 06:39 Labs: Abnormal Lab Results - Last 24 Hours (Table) 09/09/17 Range/Units 06:39 Chloride 109 H (98-107) mmol/L Assessment and Plan Assessment: ASSESSMENT Unstable angina, acute coronary event has been ruled out. CT angiogram performed on admission reveals evidence of coronary calcifications and patient has significant family history with brother, mother and father all having premature coronary artery disease. Non-sustained ventricular tachycardia, 46 beats Chronic nicotine dependence Daily alcohol intake PLAN Continue with verapamil as ordered. Exercise stress test and follow up appointment made in the office. Stable from discharge home with Life Vest and instructions for use. She verbalizes understanding. The above impression and plan of care have been discussed and directed by the signing physician. Heidi Hoffman, nurse practitioner, acting as scribe for signing physician.
--- NOTE | 2017-09-14 12:46 | DS ---
DISCHARGE SUMMARY DATE OF ADMISSION: 09/04/2017. DATE OF DISCHARGE: 09/09/2017. FINAL DIAGNOSES: 1. Nonobstructive coronary artery disease with 30% lesion per cardiac catheterization. 2. Sustained ventricular tachycardia. 3. Emphysema in a current smoker. 4. Chronic nicotine dependence, patient is an active cigarette smoker. 5. IV heparin monitoring. HOSPITAL COURSE: The patient presented with chest pain. Underwent a cardiac catheterization by Dr. Millie Whittington, found to have a 30% lesion. The patient did have a run of ventricular tachycardia. The patient was given a Life Vest by Dr. Kerr from EP service and also was put on verapamil. The patient is asymptomatic at the time of discharge. Patient was advised against smoking. The patient's 2D echocardiogram showed preserved LV function. PHYSICAL EXAMINATION: Temperature 97.6 pulse 66, respirations 18, blood pressure 107/72 pulse ox 99% on room air. LUNGS: Slightly decreased breath sounds. CARDIOVASCULAR: 1st and 2nd sounds normal. DISCHARGE MEDICATIONS: 1. Lipitor 20 mg a day. 2. Nicotine patch 21 daily. 3. Isoptin 40 mg p.o. b.i.d. CONSULTATIONS: 1. Dr. Millie Whittington from Cardiology. 2. Dr. Kerr from electrophysiology. FOLLOWUP: 1. Dr. Gomez in 2 to [address] Millie Whittington on 09/17/2017. MMODL / IJN: [id number] /
== END 2017-09-09 16:00 | disposition home or self-care (01) ==
LOC: EC 15:14 → 3OBS 20:40 → 3SUR 09-05 18:53 → 3OBS 09-08 07:52
PROVIDERS: ADMIT Hospitalist; ATTEND Hospitalist
DX: I25.10 Atherosclerotic heart disease of native coronary artery without angina pectoris (principal); I47.2 Ventricular tachycardia; R07.89 Other chest pain; J43.9 Emphysema, unspecified; Q23.1 Congenital insufficiency of aortic valve; F17.210 Nicotine dependence, cigarettes, uncomplicated; R94.6 Abnormal results of thyroid function studies; R00.1 Bradycardia, unspecified; I45.10 Unspecified right bundle-branch block; Z72.89 Other problems related to lifestyle; Z71.6 Tobacco abuse counseling; Z98.51 Tubal ligation status; Z82.49 Family history of ischemic heart disease and other diseases of the circulatory system; Z82.3 Family history of stroke; Z83.79 Family history of other diseases of the digestive system; Z84.89 Family history of other specified conditions
CPT/HCPCS: 96375 ×4; 96361 ×6; 99291 ×2; 93005 ×2; 96365; 96366; 96376; 36415; 94640; 93306; 93458; 93567; 85379; 84439; 84481; 83880; 80061; 80053 ×2; 80048 ×4; 84443 ×2; 82150; 82550 ×2; 82553 ×2; 83690; 83735; 84484 ×2; 85025 ×6; 85610; 85730 ×5; 83036; 71046; 71275; G0378 ×8; C1760; C1894; C1769; S4990 ×4; J2250; J1644 ×6; J2930; J2001; J3010; J1885; Q9967 ×2

== ENCOUNTER → 2017-11-07 | Outpatient (CLI) | payer BC ==
--- NOTE | 2017-11-07 13:36 | MM ---
Reason for exam: screening (asymptomatic). Last mammogram was performed 10 years and 3 months ago. History: Patient is postmenopausal. Family history of breast cancer in paternal grandmother. Benign excisional biopsy of the left breast, 2002. Physical Findings: A clinical breast exam by your physician is recommended on an annual basis and results should be correlated with mammographic findings. MG 3D Screening Mammo W/Cad Bilateral CC and MLO view(s) were taken. Prior study comparison: August 21, 2007, mammogram, performed at [facility]. October 17, 2006, mammogram, performed at [facility]. There are scattered fibroglandular densities. There is chronic nodularity in the left breast. No significant changes when compared with prior studies. ASSESSMENT: Benign, BI-RAD 2 RECOMMENDATION: Routine screening mammogram of both breasts in 1 year.
== END | disposition home or self-care (01) ==
LOC: RADMAMWWP 07:00
PROVIDERS: ATTEND Family Medicine
DX: Z12.31 Encounter for screening mammogram for malignant neoplasm of breast (principal)
CPT/HCPCS: 77063; 77067

== ENCOUNTER → 2017-11-07 | Outpatient (CLI) | payer BC ==
[2017-11-07 08:33] LABS: HCT 38.1 % (34.0-46.0); HGB 12.1 gm/dL (11.4-16.0); MCH 30.6 pg (25.0-35.0); MCHC 31.7 g/dL (31.0-37.0); MCV 96.4 fL (80.0-100.0); Mean Platelet Volume 8.4; Platelet Count 285 k/uL (150-450); RBC 3.96 m/uL (3.80-5.40); RDW 13.8 % (11.5-15.5); WBC 5.7 k/uL (3.8-10.6)
[2017-11-07 09:05] LABS: Anion Gap 8 mmol/L; Blood Urea Nitrogen 17 mg/dL (7-17); Carbon Dioxide 27 mmol/L (22-30); Chloride 107 mmol/L (98-107); Glucose 87 mg/dL (74-99); Potassium 4.2 mmol/L (3.5-5.1); Sodium 142 mmol/L (137-145)
== END | disposition home or self-care (01) ==
LOC: LABPAT 07:18
PROVIDERS: ATTEND Internal Medicine Clinical Cardiac Electrophysiology
DX: Z01.812 Encounter for preprocedural laboratory examination (principal); I47.2 Ventricular tachycardia; I35.0 Nonrheumatic aortic (valve) stenosis; Q23.1 Congenital insufficiency of aortic valve
CPT/HCPCS: 36415; 80051; 82565; 82947; 84520; 85027

== ENCOUNTER 2017-11-11 10:45 | Day surgery (SDC) | payer BC ==
[~2017-11-11 10:45] MED LIST: ceFAZolin IN SWFI 2 GM/20 ML SYRINGE IVP ONE
[2017-11-11] MEDS: SODIUM CHLORIDE 0.9% 1,000 ML IV SCH (11:26)
[2017-11-11] MEDS ORDERED: ISOPROTERENOL 250 MCG/1.25 ML SYR IV ONE (12:48)
[2017-11-11] MEDS ORDERED: MIDAZOLAM 2 MG/2 ML VIAL ONE (12:48)
[2017-11-11] MEDS ORDERED: ePHEDrine SULFATE/0.9% NACL/PF 50 MG/5 ML SYRINGE IV ONE (12:48)
[2017-11-11] MEDS ORDERED: PROPOFOL 10 MG/ML 20 ML VIAL IV ONE (12:48)
[2017-11-11] MEDS ORDERED: diphenhydrAMINE 50 MG/ML 1 ML VIAL ONE (12:48)
[2017-11-11] MEDS ORDERED: fentaNYL (PF) 50 MCG/ML 2 ML AMP ONE (12:48)
[2017-11-11] MEDS ORDERED: LIDOCAINE 1% INJ 10MG/ML (20 ML MDV) ONE (13:05)
[2017-11-11] MEDS ORDERED: LIDOCAINE 1% INJ 10MG/ML (20 ML MDV) SQ ONE (13:36)
[2017-11-11] MEDS ORDERED: HYDROcodone/APAP 5-325MG 1 EACH TAB PO PRN (16:01)
[2017-11-11] MEDS ORDERED: ACETAMINOPHEN TAB 325 MG TAB PO PRN (16:01)
[2017-11-11 18:52] VITALS: BMI 23.9
[2017-11-11] MEDS ORDERED: ACETAMINOPHEN IV (For NPO) 1,000 MG in EMPTY BAG 1 BAG IVPB ONE (19:00)
[2017-11-11 20:50] VITALS: RESP 16
--- NOTE | 2017-11-11 23:41 | PCN ---
PROCEDURE NOTE 57-year-old female who had an episode of sustained ventricular tachycardia with spontaneous termination, which appeared to have a right bundle branch block pattern with a QS pattern in AVF. She is brought in for diagnostic EP study. The patient brought to the EP lab in a fasting state. Written informed consent was obtained prior to the procedure. The left groin were prepped and draped as per protocol. 1% lidocaine was used for local anesthesia. Then 2 venous sheaths placed in the left femoral vein, 1 venous sheath in the right femoral vein. Via these, diagnostic catheters were positioned the right heart. The sinus cycle length was [address] 161 milliseconds, QRS 88 milliseconds, and QT 393 milliseconds. AH interval 103 milliseconds, HV interval 41 milliseconds. Sinus node recovery times of 600, 500 and 400 milliseconds were 879, 1203 and 1152 milliseconds. Corresponding corrected sinus node recovery times were within normal limits. VA Wenckebach block greater than 700 milliseconds. Atrial extra stimulation was performed from the high right atrium. AV node ERP 600/340 milliseconds with a possible jump in the AH interval with no inducible AVNRT. AV node ERP 500/310 milliseconds. Burst stimulation was performed. Atrial extra stimulation was performed with double extra stimuli. Burst stimulation was performed from the RV apex from 4 milliseconds down to 210 milliseconds. Ventricular extra stimulation was performed with 2 drive trains up double extra stimuli and then also up to triple extrastimuli. On 2 occasions nonsustained PSVT was noted which was brief lasting for about 3-1/2 seconds. High-dose Isuprel was then employed and burst stimulation was performed. This induced atrial tachycardia, frequent nonsustained runs, but no VT. The catheter was then moved to the RV. Ventricular extra stimulation was performed from the RV apex after double extra stimuli and the ERP was performed at 400/180/180 milliseconds. The catheter was moved to the RV septum. Burst stimulation was performed. Ventricular extra stimulation was performed after triple extra stimuli with a drive train of 400 milliseconds. The ventricular ERP is a 400/less than 200/less than 200 milliseconds. No arrhythmias induced. ASSESSMENT: 1. No arrhythmias induced on Isuprel. 2. No arrhythmias induced with ventricular extra stimulation from the RV apex or the RV septum with up to triple extra stimuli. 3. In the baseline state without Isuprel, two episodes of nonsustained PMVT were induced for up to 3.5 seconds only. 4. No sustained VT was induced from the inferior wall of the LV. No monomorphic ventricular tachycardia was induced. 5. On high-dose Isuprel, atrial tachycardia was induced, but this was a non clinical arrhythmia. It was induced with ventricular stimulation. 6. No ablation was performed since the clinical arrhythmia was noninducible. All catheters were removed. The patient was transferred back to telemetry. PLAN: 1. Review MRI results with the reading physicians at [facility], Dr. Varghese Melara and phone #[phone]. 2. Continue the Life Vest. 3. Further medical management thereafter. MMODL / IJN: [id number] /
[2017-11-12 07:24] VITALS: BP 105/66; PULSE 52; TEMP 98.2
--- NOTE | 2017-11-12 07:37 | P.DS ---
Providers Attending physician: Vivek Kerr Primary care physician: [facility] Course: Patient is doing well. She denies any chest discomfort dizziness lightheadedness. Afebrile 98.2F pulse rate in the 50s blood pressure 105/66. His mercury normal respirations no pleuritic chest discomfort Heart sounds S1 and S2 are normal no murmurs or gallops or rub Breath sounds are clear no rhonchi no crackles Extremities warm no edema Groins of healed well there is no hematoma no tenderness no swelling. She does not report any pain in either groins Telemetry shows atrial tachycardia that was induced during EP study Impression Episode of sustained ventricular tachycardia with a QRS pattern in the inferior lead and a right bundle branch block pattern on her artery strips in the previous admission Final cardiac MRI assessment still pending. I do have the report and I'm waiting for a call back from Dr. Varghese Melara/[facility] to call me back regarding my questions At EP study the clinical ventricular tachycardia could not be induced despite fairly aggressive ventricular stimulation protocol both on and off high dose Isuprel Inducible nonsustained PSVT lasting less than 3.5 seconds on 2 occasions only, off Isuprel Inducible atrial tachycardia on high-dose Isuprel with ventricular stimulation Plan Continue with LifeVest until a final decision is made regarding further evaluation Continue verapamil 40 mg twice daily Patient Condition at Discharge: Stable Plan - Discharge Summary Discharge Rx Participant: No New Discharge Prescriptions: No Action RX: Verapamil [Isoptin] 40 mg PO BID #60 tab Nicotine 14Mg/24Hr Patch [Habitrol 14Mg/24Hr Patch] 1 patch TRANSDERM DAILY Discharge Medication List RX: Verapamil [Isoptin] 40 mg PO BID #60 tab 09/09/17 [Rx] Nicotine 14Mg/24Hr Patch [Habitrol 14Mg/24Hr Patch] 1 patch TRANSDERM DAILY [History] Follow up Appointment(s)/Referral(s): Vivek Kerr MD [STAFF PHYSICIAN] - 2 Weeks Patient Instructions/Handouts: Electrophysiology Study (DC) Activity/Diet/Wound Care/Special Instructions: Life Vest to worn until advised otherwise by DR Kerr.
[2017-11-12] MEDS: SODIUM CHLORIDE 0.9% 1,000 ML IV SCH (07:49)
[2017-11-12] MEDS ORDERED: VERAPAMIL 40 MG TAB PO SCH (09:00)
[2017-11-12] MEDS ORDERED: NICOTINE 14MG/24HR PATCH TRANSDERM SCH (09:00)
== END 2017-11-12 10:45 | disposition home or self-care (01) ==
LOC: CATHEP 10:45 → 3OBS 17:56 → CATHEP 11-12 10:45
PROVIDERS: ATTEND Internal Medicine Clinical Cardiac Electrophysiology
DX: I47.1 Supraventricular tachycardia (principal); Q23.1 Congenital insufficiency of aortic valve; I35.0 Nonrheumatic aortic (valve) stenosis; I10 Essential (primary) hypertension; E78.5 Hyperlipidemia, unspecified; Z95.811 Presence of heart assist device; Z87.891 Personal history of nicotine dependence; Z82.49 Family history of ischemic heart disease and other diseases of the circulatory system; Z79.82 Long term (current) use of aspirin; Z79.899 Other long term (current) drug therapy
CPT/HCPCS: 93623; 93620; C1894; C1769 ×2; C1730 ×2; S4990; J2250; J1200; J2001; J3010; J2704; J0690

== ENCOUNTER → 2020-10-23 | Outpatient (CLI) | payer BC ==
--- NOTE | 2020-10-23 11:35 | MM ---
Reason for exam: clinical finding. Last mammogram was performed 2 years and 11 months ago. History: Patient is postmenopausal. Family history of breast cancer in paternal grandmother. Benign excisional biopsy of the left breast, 2002. Physical Findings: Nurse Summary: 3.5cm nodule in the left breast at the nipple (nurse glynn). MG Diagnostic Mammo w CAD MADIE Bilateral CC and MLO view(s) were taken. BEARD view(s) were taken of the left breast. Prior study comparison: November 07, 2017, bilateral MG 3d screening mammo w/cad. August 21, 2007, mammogram, performed at [facility]. There are scattered fibroglandular densities. Stable nodule left breast since 2018. Thickening left nipple. These results were verbally communicated with the patient and result sheet given to the patient on 10/23/20. ASSESSMENT: Incomplete: need additional imaging evaluation, BI-RAD 0 RECOMMENDATION: Ultrasound of the left breast. Manage patient on a clinical basis.
--- NOTE | 2020-10-23 11:37 | USB ---
Reason for exam: additional evaluation requested from abnormal screening. History: Patient is postmenopausal. Family history of breast cancer in paternal grandmother. Benign excisional biopsy of the left breast, 2003. US Breast LT Left complete breast ultrasound includes all four quadrants, the retroareolar region and axilla. Finding demonstrates a 6mm lymph node at the axilla. No discrete abnormality seen. Correlate clinically Pagets of the nipple. These results were verbally communicated with the patient and result sheet given to the patient on 10/23/20. ASSESSMENT: Negative, BI-RAD 1 RECOMMENDATION: Routine screening mammogram of both breasts in 1 year. Manage patient on a clinical basis. Called Dr. Quinones's office with mammographic findings and has scheduled an appointment for the patient for 10/30/20 at 2:[address] Bella. PRELIMINARY REPORT CALLED AND FAXED TO DR. BELLA ON 10/23/20.
== END | disposition home or self-care (01) ==
LOC: RADMAMWWP 09:30
PROVIDERS: ATTEND Family Medicine
DX: N63.0 Unspecified lump in unspecified breast (principal); N61.1 Abscess of the breast and nipple; Z80.3 Family history of malignant neoplasm of breast
CPT/HCPCS: 77066

== ENCOUNTER → 2020-10-23 | Outpatient (CLI) | payer BC ==
--- NOTE | 2020-10-23 09:41 | XR ---
EXAMINATION TYPE: XR chest 2V DATE OF EXAM: 10/23/2020 COMPARISON: 09/04/2017 TECHNIQUE: PA and lateral views submitted. HISTORY: Pain FINDINGS: The lungs are clear and there is no pneumothorax, pleural effusion, or focal pneumonia. Hyperinflat ion. Heart size normal. No overt failure. No pneumothorax. Degenerative changes of the spine. Linear lucency along the right neck may represent artifact. IMPRESSION: 1. No acute process. Correlate for COPD. See above.
== END | disposition home or self-care (01) ==
LOC: RADXRMAIN 09:06
PROVIDERS: ATTEND Family Medicine
DX: R06.02 Shortness of breath (principal)
CPT/HCPCS: 71046

== ENCOUNTER → 2021-07-12 | Outpatient (CLI) | payer BC ==
--- NOTE | 2021-07-12 16:01 | XR ---
EXAMINATION TYPE: XR chest 2V DATE OF EXAM: 07/12/2021 COMPARISON: 10/23/2020 TECHNIQUE: PA and lateral views submitted. HISTORY: Cough and shortness of breath FINDINGS: The lungs are clear and there is no pneumothorax, pleural effusion, or focal pneumonia. AC joint ar thropathy. Hyperinflation suggests COPD. Hypertrophic and degenerative change of the spine. Atheroscl erotic change aorta. IMPRESSION: 1. No acute process.
== END | disposition home or self-care (01) ==
LOC: RADXRMAIN 15:41
PROVIDERS: ATTEND Family Medicine
DX: R06.02 Shortness of breath (principal)
CPT/HCPCS: 71046

== ENCOUNTER 2023-03-08 10:09 | Emergency (ER) | payer BC ==
[2023-03-08] MEDS ORDERED: IPRATROPIUM-ALBUTEROL 3 ML NEB INHALATION STA (10:27)
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
--- NOTE | 2023-03-08 10:37 | XR ---
EXAMINATION TYPE: XR chest 2V DATE OF EXAM: 03/08/2023 COMPARISON: 07/12/2021 INDICATION: Difficult breathing TECHNIQUE: Frontal and lateral views of the chest are obtained. FINDINGS: The heart size is mildly prominent. The pulmonary vasculature is normal. The lungs are clear. There is hyperinflation present. No suspicious consolidation is evident. Small posterior pleural effusion may be present. IMPRESSION: 1. There may be a small posterior pleural effusion. 2. Hyperinflation flattening diaphragms compatible with COPD
[2023-03-08 11:04] LABS: Basophils % (A) 0 %; Eosinophils # (A) 0.1 k/uL (0-0.7); Eosinophils % (A) 1 %; HCT 39.7 % (34.0-46.0); HGB 13.1 gm/dL (11.4-16.0); Lymphocytes # (A) 1.4 k/uL (1.0-4.8); Lymphocytes % (A) 11 %; MCH 32.4 pg (25.0-35.0); MCV 98.2 fL (80.0-100.0); Mean Platelet Volume 8.9; Monocytes # (A) 0.5 k/uL (0-1.0); Monocytes % (A) 4 %; Neutrophils # (A) 10.2 k/uL (1.3-7.7); Neutrophils % (A) 83 %; Platelet Count 332 k/uL (150-450); RBC 4.04 m/uL (3.80-5.40); RDW 13.7 % (11.5-15.5); WBC 12.3 k/uL (3.8-10.6)
[2023-03-08 11:29] LABS: Prothrombin Time 10.7 sec (10.0-12.5)
[2023-03-08 11:30] LABS: Blood Urea Nitrogen 21 mg/dL (7-17); Calcium 9.1 mg/dL (8.4-10.2); Carbon Dioxide 25 mmol/L (22-30); Glucose 119 mg/dL (74-99); Total Bilirubin 0.9 mg/dL (0.2-1.3)
[2023-03-08 11:37] LABS: Partial Thromboplastin Time 19.7 sec (22.0-30.0)
[2023-03-08 11:38] LABS: NT-Pro-B-Type Natriuretic Pept 14300 pg/mL
[2023-03-08 11:39] LABS: Sodium 139 mmol/L (137-145)
[2023-03-08 12:06] LABS: ALT 125 U/L (4-34); AST 41 U/L (14-36); African American GFR (CKD) >90 (>60 ml/min/1.73 sqM); Albumin 3.7 g/dL (3.5-5.0); Alkaline Phosphatase 80 U/L (38-126); Anion Gap 5 mmol/L; Chloride 109 mmol/L (98-107); Non-African American GFR(CKD) >90 (>60 ml/min/1.73 sqM); Potassium 5.2 mmol/L (3.5-5.1); Total Protein 6.3 g/dL (6.3-8.2)
--- NOTE | 2023-03-08 12:59 | CT ---
CTA CHEST EXAMINATION TYPE: CT chest angio for PE DATE OF EXAM: 03/08/2023 INDICATION: 261.5 CT DLP: ABRIL, elevated d-dimer mGycm, Automated exposure control for dose reduction was used. CONTRAST: Patient injected with 80ML mL of Isovue 370. COMPARISON: None TECHNIQUE: CT of the chest is performed on a spiral scan at 2 mm thick sections. Study is performed with intravenous contrast timed for evaluation for pulmonary embolism. This will limit additional po rtions of the evaluation. 3-D MIP images reconstructed by the technologist are reviewed on the compu ter in the coronal and sagittal planes. FINDINGS: No persistent filling defects are evident to suggest an acute pulmonary embolism. No mediastinal or hilar adenopathy enlarged by CT criteria is evident. The ascending aorta diameter at the level of the main pulmonary artery is 3.8 cm. The main pulmonary artery diameter at the bifurcation is 3.1 cm. Coronary artery calcifications present. Minimal emphysematous changes are within the dependent lung bases. This is greater at the lung apices . No suspicious infiltrates. Limited CT sections were through the upper abdomen. Upper abdomen appears unremarkable. IMPRESSION: 1. No acute pulmonary embolism. 2. Emphysema
[2023-03-08 14:23] VITALS: RESP 18
[2023-03-08] MEDS ORDERED: FUROSEMIDE 10 MG/ML 2 ML VIAL IV ONE (14:27)
[2023-03-08] MEDS ORDERED: methylPREDNISolone SOD SUCCI 125 MG/2 ML VIAL IV STA (14:27)
[2023-03-08] MEDS ORDERED: SODIUM CHLORIDE 0.9% 1,000 ML IV STA (14:42)
[2023-03-08 15:59] VITALS: BP 103/77; PULSE 98; TEMP 98.1
== END 2023-03-08 15:58 | disposition home or self-care (01) ==
LOC: EC 10:09
DX: I48.91 Unspecified atrial fibrillation (principal); R79.89 Other specified abnormal findings of blood chemistry; D72.829 Elevated white blood cell count, unspecified; R22.43 Localized swelling, mass and lump, lower limb, bilateral; F17.210 Nicotine dependence, cigarettes, uncomplicated; J43.9 Emphysema, unspecified; J44.9 Chronic obstructive pulmonary disease, unspecified; I25.10 Atherosclerotic heart disease of native coronary artery without angina pectoris; Z20.822 Contact with and (suspected) exposure to COVID-19
CPT/HCPCS: 36415; 94640; 93005; 85379; 83880; 80053; 83605; 84484; 85025; 85610; 85730; 87636; 71046; 71275; 99406; 99285; 96374; 96375; 96361; J1940; J2930; Q9967